=== PATIENT | female | born 1955 | race Caucasian/White ===

== ENCOUNTER → 2016-06-10 | Outpatient (CLI) | payer MEDICARE, MEDICAID ==
[~2016-06-10] MED LIST: ANTIVERT25 MG PO; ATIVAN0.5 MG PO; ATIVAN1 MG PO; AUGMENTIN 875875 MG PO; CIPRO500 MG PO; CYCLOBENZAPRINE5 M3 PO; FLAGYL500 MG PO; HYDROCODONE BIT1 T11 PO; KEFLEX500 MG PO; LIPITOR80 MG PO; MOTRIN600 MG PO; NEXIUM40 MG PO; ROBAXIN-750750 MG PO; SYNTHROID,LEV112 MCG PO; TRICOR48 MG PO; VICODIN 5/500 505 MG PO; ZOFRAN4 MG PO
== END | disposition home or self-care (01) ==
LOC: MAMMO 02:55
DX: Z12.31 Encounter for screening mammogram for malignant neoplasm of breast (principal)

== ENCOUNTER → 2016-11-30 | Outpatient (CLI) | payer MEDICARE, MEDICAID ==
[~2016-11-30] MED LIST changes: -ATIVAN1 MG PO; -SYNTHROID,LEV112 MCG PO; +SYNTHROID,LEV125 MCG PO; +WELCHOL625 MG PO
== END | disposition home or self-care (01) ==
LOC: CARD 11-29 08:54
DX: R53.81 Other malaise (principal); R07.2 Precordial pain

== ENCOUNTER → 2017-02-16 | Outpatient (CLI) | payer MEDICARE, MEDICAID | END | disposition home or self-care (01) | LOC: US 09:48 | DX: N28.1 Cyst of kidney, acquired (principal); R31.1 Benign essential microscopic hematuria ==

== ENCOUNTER → 2017-07-27 | Outpatient (CLI) | payer MEDICARE, MEDICAID | END | disposition home or self-care (01) | LOC: MAMMO 01:03 | DX: Z12.31 Encounter for screening mammogram for malignant neoplasm of breast (principal) ==

== ENCOUNTER → 2019-11-26 | Outpatient (CLI) | payer OTHER | END | disposition home or self-care (01) | LOC: MAMMO 12:58 | DX: Z12.31 Encounter for screening mammogram for malignant neoplasm of breast (principal) ==

== ENCOUNTER 2020-01-25 22:28 | Emergency (ER) | payer OTHER ==
[2020-01-26] MEDS ORDERED: PREDNISONE10 MG PO (00:48)
[2020-01-26] MEDS ORDERED: [UNRECOGNIZED DRUG - REMARK] PO (00:53)
== END 2020-01-26 00:55 | disposition home or self-care (01) ==
LOC: ED 22:28
DX: T78.3XXA Angioneurotic edema, initial encounter (principal); F41.9 Anxiety disorder, unspecified; F32.9 Major depressive disorder, single episode, unspecified; K21.9 Gastro-esophageal reflux disease without esophagitis; J44.9 Chronic obstructive pulmonary disease, unspecified; E03.9 Hypothyroidism, unspecified; Z88.8 Allergy status to other drugs, medicaments and biological substances; Z79.899 Other long term (current) drug therapy

== ENCOUNTER 2020-01-27 10:21 | Emergency (ER) | payer OTHER ==
[~2020-01-27] VITALS: Ht 167.6 cm; Wt 90.7 kg
[~2020-01-27 10:21] MED LIST changes: +PREDNISONE10 MG PO; +[UNRECOGNIZED DRUG - REMARK] PO
[2020-01-27 12:10] LABS: BASO % 0.2 % (0.0-1.0); EOS % 0.1 % (1.0-4.0); HEMATOCRIT 43.4 % (37.0-47.0); LYMPH # 1.6 10*3/uL (1.3-4.4); LYMPH % 8.8 % (27.0-41.0); MEAN CELL VOLUME 83.6 fl (81.0-99.0); MEAN CORPUSCULAR HGB 25.6 pg (27.0-31.0); MEAN CORPUSCULAR HGB CONC 30.6 g/dl (33.0-37.0); MEAN PLATELET VOLUME 10.3 fl (9.6-12.3); MONO # 1.3 10*3/uL (0.1-1.0); MONO % 7.1 % (3.0-9.0); NEUT # 15.3 10*3/uL (2.3-7.9); NEUT % 82.9 % (47.0-73.0); PLATELET COUNT AUTOMATED 214 10*3/uL (130-400); RED BLOOD COUNT 5.19 10*6/uL (4.10-5.10); RED CELL DISTRI WIDTH 13.9 % (0-14.5); WHITE BLOOD COUNT 18.5 10*3/uL (4.8-10.8)
[2020-01-27 12:26] LABS: ALBUMIN 3.7 gm/dl (3.1-4.5); ALKALINE PHOSPHATASE 81 U/L (45-117); BUN 21 mg/dl (7-24); CHLORIDE 103 mmol/L (98-107); CREATININE 1.04 mg/dL (0.55-1.02); LIPASE 41 U/L (73-393); POTASSIUM 3.6 mmol/L (3.5-5.1); SGOT/AST 7 IU/L (3-35); SGPT/ALT 16 U/L (12-78); SODIUM 139 mmol/L (136-145); TOTAL PROTEIN 8.2 gm/dL (6.4-8.2)
[2020-01-27 12:33] LABS: BILIRUBIN 1+; BLOOD 2+ (NEGATIVE); CLARITY TURBID (CLEAR); COLOR ORANGE (YELLOW); GLUCOSE NEGATIVE; KETONE NEGATIVE; LEUKO ESTERASE 2+ (NEGATIVE); NITRITE POSITIVE (NEGATIVE)
[2020-01-27 12:41] LABS: EPITHELIAL CELLS 21-30; RBC TNTC rbc/hpf (0-2); WBC 21-30 wbc/hpf (0-5)
[2020-01-27 12:42] LABS: BACTERIA 1+
== END 2020-01-27 14:49 | disposition short-term general hospital (02) ==
LOC: ED 10:21
PROVIDERS: Physician Assistant
DX: N12 Tubulo-interstitial nephritis, not specified as acute or chronic (principal); A41.9 Sepsis, unspecified organism; F41.9 Anxiety disorder, unspecified; J44.9 Chronic obstructive pulmonary disease, unspecified; F32.9 Major depressive disorder, single episode, unspecified; K21.9 Gastro-esophageal reflux disease without esophagitis; E78.00 Pure hypercholesterolemia, unspecified; E03.9 Hypothyroidism, unspecified; Z88.8 Allergy status to other drugs, medicaments and biological substances; Z79.899 Other long term (current) drug therapy; Z87.891 Personal history of nicotine dependence

== ENCOUNTER 2020-02-16 | Emergency (ER) | payer OTHER ==
[~2020-02-16] VITALS: Ht 167.6 cm; Wt 95.3 kg
[2020-02-16 00:59] LABS: BILIRUBIN 1+; CLARITY Turbid (CLEAR); COLOR Red (YELLOW); GLUCOSE Negative; KETONE Negative
[2020-02-16 01:00] LABS: BLOOD 3+ (NEGATIVE); LEUKO ESTERASE 2+ (NEGATIVE); NITRITE Negative (NEGATIVE); RBC TNTC rbc/hpf (0-2); SPECIFIC GRAVITY 1.015 (1.001-1.030); UROBILINOGEN 0.2 E.U./dl (0.0-1.0)
[2020-02-16 01:00] LABS: BASO % 0.2 % (0.0-1.0); EOS # 0.1 10*3/uL (0.0-0.4); HEMATOCRIT 38.8 % (37.0-47.0); LYMPH % 7.4 % (27.0-41.0); MEAN CELL VOLUME 81.9 fl (81.0-99.0); MEAN CORPUSCULAR HGB 25.5 pg (27.0-31.0); MEAN CORPUSCULAR HGB CONC 31.2 g/dl (33.0-37.0); MEAN PLATELET VOLUME 9.6 fl (9.6-12.3); MONO # 0.9 10*3/uL (0.1-1.0); MONO % 6.7 % (3.0-9.0); NEUT # 10.9 10*3/uL (2.3-7.9); NEUT % 84.4 % (47.0-73.0); PLATELET COUNT AUTOMATED 231 10*3/uL (130-400); RED BLOOD COUNT 4.74 10*6/uL (4.10-5.10); RED CELL DISTRI WIDTH 13.8 % (0-14.5); WHITE BLOOD COUNT 12.9 10*3/uL (4.8-10.8)
[2020-02-16 01:17] LABS: ALBUMIN 3.3 gm/dl (3.1-4.5); CREATININE 1.11 mg/dL (0.55-1.02); POTASSIUM 3.8 mmol/L (3.5-5.1); TOTAL PROTEIN 7.3 gm/dL (6.4-8.2)
[2020-02-16] MEDS ORDERED: NORCO 5-325 TA1 EACH PO (02:41)
== END 2020-02-16 02:40 | disposition home or self-care (01) ==
LOC: ED
PROVIDERS: Nurse Practitioner Family
DX: G89.18 Other acute postprocedural pain (principal); Z88.8 Allergy status to other drugs, medicaments and biological substances; Z79.899 Other long term (current) drug therapy

== ENCOUNTER → 2020-02-28 | Outpatient (CLI) | payer OTHER ==
[~2020-02-28] MED LIST changes: +NORCO 5-325 TA1 EACH PO
== END | disposition home or self-care (01) ==
LOC: CT 12:23
PROVIDERS: ATTEND Urology
DX: R91.8 Other nonspecific abnormal finding of lung field (principal)

== ENCOUNTER 2020-04-03 00:45 | Emergency (ER) | payer OTHER, MEDICAID ==
[~2020-04-03] VITALS: Ht 167.6 cm; Wt 93.0 kg
[2020-04-03 01:18] LABS: BASO # 0.1 10*3/uL (0.0-0.1); BASO % 0.7 % (0.0-1.0); EOS # 0.1 10*3/uL (0.0-0.4); EOS % 1.5 % (1.0-4.0); HEMATOCRIT 41.4 % (37.0-47.0); LYMPH # 1.4 10*3/uL (1.3-4.4); MEAN CELL VOLUME 79.6 fl (81.0-99.0); MEAN CORPUSCULAR HGB 23.7 pg (27.0-31.0); MEAN CORPUSCULAR HGB CONC 29.7 g/dl (33.0-37.0); MEAN PLATELET VOLUME 10.3 fl (9.6-12.3); MONO % 14.7 % (3.0-9.0); NEUT # 4.2 10*3/uL (2.3-7.9); PLATELET COUNT AUTOMATED 222 10*3/uL (130-400); RED CELL DISTRI WIDTH 13.9 % (0-14.5); WHITE BLOOD COUNT 6.8 10*3/uL (4.8-10.8)
[2020-04-03 01:31] LABS: BUN 13 mg/dl (7-24); CHLORIDE 107 mmol/L (98-107); CREATININE 0.95 mg/dL (0.55-1.02); SODIUM 141 mmol/L (136-145)
[2020-04-03] MEDS ORDERED: PREDNISONE20 M1 PO ×2 (01:46)
== END 2020-04-03 01:55 | disposition home or self-care (01) ==
LOC: ED 00:45
PROVIDERS: Internal Medicine
DX: J40 Bronchitis, not specified as acute or chronic (principal); Z88.8 Allergy status to other drugs, medicaments and biological substances; Z79.899 Other long term (current) drug therapy

== ENCOUNTER 2020-04-07 14:43 | Inpatient (IN) | payer OTHER, MEDICAID ==
[~2020-04-07] VITALS: Ht 167.6 cm; Wt 94.3 kg
[~2020-04-07 14:43] MED LIST changes: +PREDNISONE20 M1 PO
[2020-04-07 15:12] VITALS: BP 138/60
[2020-04-07 15:40] VITALS: BP 126/69
[2020-04-07 15:41] LABS: HEMATOCRIT 44.3 % (37.0-47.0); MEAN CELL VOLUME 78.4 fl (81.0-99.0); MEAN CORPUSCULAR HGB 23.9 pg (27.0-31.0); MEAN CORPUSCULAR HGB CONC 30.5 g/dl (33.0-37.0); MEAN PLATELET VOLUME 10.6 fl (9.6-12.3); PLATELET COUNT AUTOMATED 219 10*3/uL (130-400); RED BLOOD COUNT 5.65 10*6/uL (4.10-5.10); WHITE BLOOD COUNT 9.1 10*3/uL (4.8-10.8)
[2020-04-07 15:57] LABS: PLATELET SUFFICIENCY NORMAL (NORMAL); TOTAL CELLS COUNTED 100 #CELLS
[2020-04-07 15:59] LABS: ACT PARTIAL THROMBO TIME 26.2 SECONDS (20.0-32.1); INTERNATIONAL NORM RATIO 0.9 (2.0-3.5)
[2020-04-07 16:01] LABS: ALBUMIN 3.2 gm/dl (3.1-4.5); ALKALINE PHOSPHATASE 79 U/L (45-117); BUN 25 mg/dl (7-24); CHLORIDE 98 mmol/L (98-107); CREATININE 1.27 mg/dL (0.55-1.02); LIPASE 88 U/L (73-393); POTASSIUM 4.2 mmol/L (3.5-5.1); SGOT/AST 13 IU/L (3-35); SGPT/ALT 15 U/L (12-78); SODIUM 133 mmol/L (136-145); TOTAL PROTEIN 7.3 gm/dL (6.4-8.2)
[2020-04-07 16:02] LABS: TROPONIN I < 0.015 ng/ml (<0.045)
[2020-04-07 16:38] VITALS: BP 134/63
--- NOTE | 2020-04-07 17:10 | NUR ---
PROVIDED PT WITH A BEDPAN.
[2020-04-07 17:39] VITALS: BP 129/59
--- NOTE | 2020-04-07 17:39 | NUR ---
PROVIDED PT WITH A GLASS OF WATER.
[2020-04-07 19:47] VITALS: BP 129/71
[2020-04-07 21:05] VITALS: BP 154/70
--- NOTE | 2020-04-07 21:05 | NUR ---
A 64, admitted to , under the services of CHERELLE Vee DO with a diagnosis of PNEUMONIA DUE TO COVID-19 VIRUS. Chief complaint is SOB. Patient arrived via wheel chair from ER. Monitor applied. Initial assessment completed. Vital signs taken and recorded. CHERELLE VEE DO notified of admission to the unit. Orders received. See assessment for past medical history, medications and allergies. Patient and/or family oriented to unit. [facility] visitation policy reviewed. Clothing/patient valuable form completed. THOM CLAY
--- NOTE | 2020-04-07 21:10 | NUR ---
PATIENT PULSE OX 88% ON 4L. 6L HIGHFLOW NASAL CANNULA PLACED ON PATIENT. PATIENT PLACED ON CONTINOUS PULSE OX. WILL CONTINUE TO MONITOR.
--- NOTE | 2020-04-07 21:12 | NUR ---
PROVIDED PATIENT WITH A DRINK OF WATER.
[2020-04-07] MEDS ORDERED: OXYBUTYNIN10 MG PO (21:48)
[2020-04-07] MEDS ORDERED: TAMSULOSIN HCL0.4 MG PO (21:48)
[2020-04-07 21:55] LABS: ABG BASE EXCESS 2.2 mmol/L (-2.0-2.0); ARTERIAL BLOOD GAS PH 7.482 (7.35-7.45)
--- NOTE | 2020-04-07 22:10 | NUR ---
NOTIFIED DR. BAE OF NEW CONSULT AND UPDATED HIM ON PATIENT LABWORK AND CONDITION. SEE NEW ORDERS.
--- NOTE | 2020-04-07 23:00 | NUR ---
NOTIFIED DR. NAJERA OF CRITICAL LACTIC ACID, 4.1. NO NEW ORDERS RECEIVED. WILL CONTINUE TO MONITOR.
--- NOTE | 2020-04-07 23:33 | NUR ---
NOTIFIED DR. WHITMORE ANSWERING SERVICE OF NEW CONSULT
[2020-04-08] VITALS: BP 115/76
[2020-04-08 05:34] LABS: BILIRUBIN Negative (Negative); BLOOD Trace-Lysed (Negative); CLARITY Clear (Clear); COLOR Yellow (Yellow); GLUCOSE Negative (Negative); KETONE Negative (Negative); LEUKO ESTERASE Negative (Negative); NITRITE Negative (Negative); PH 5.5 (4.5-8.0); SPECIFIC GRAVITY 1.015 (1.001-1.030); UROBILINOGEN 0.2 E.U./dl (0.0-1.0)
[2020-04-08 05:47] LABS: RBC 16-20 rbc/hpf (0-2)
[2020-04-08 06:28] LABS: BASO % 0.1 % (0.0-1.0); HEMATOCRIT 39.6 % (37.0-47.0); LYMPH # 0.5 10*3/uL (1.3-4.4); LYMPH % 6.5 % (27.0-41.0); MEAN CELL VOLUME 79.2 fl (81.0-99.0); MEAN CORPUSCULAR HGB 24.4 pg (27.0-31.0); MEAN CORPUSCULAR HGB CONC 30.8 g/dl (33.0-37.0); MEAN PLATELET VOLUME 10.4 fl (9.6-12.3); MONO # 0.4 10*3/uL (0.1-1.0); NEUT # 6.6 10*3/uL (2.3-7.9); NEUT % 88.1 % (47.0-73.0); PLATELET COUNT AUTOMATED 187 10*3/uL (130-400); RED CELL DISTRI WIDTH 14.2 % (0-14.5); WHITE BLOOD COUNT 7.4 10*3/uL (4.8-10.8)
[2020-04-08 06:56] LABS: ALBUMIN 2.9 gm/dl (3.1-4.5); BUN 20 mg/dl (7-24); CHLORIDE 101 mmol/L (98-107); POTASSIUM 4.1 mmol/L (3.5-5.1); SGOT/AST 11 IU/L (3-35); SGPT/ALT 13 U/L (12-78); SODIUM 135 mmol/L (136-145); TOTAL PROTEIN 6.7 gm/dL (6.4-8.2)
[2020-04-08 06:59] LABS: ALKALINE PHOSPHATASE 65 U/L (45-117); CPK 35 U/L (26-192); LDH 191 U/L (84-246)
[2020-04-08 08:00] VITALS: BP 138/51
--- NOTE | 2020-04-08 08:30 | NUR ---
PT AWAKE/ALERT/ORIENTED X3. LUNGS DIMINISHED T/O. ON 6.L HIGH FLOW AT THIS TIME. PATIENT UP WALKING IN ROOM. NO EDEMA NOTED. NONPRODUCTIVE HACKING COUGH NOTED ON ASSESSMENT. PATIENT DENIES ANY NEEDS AT THIS TIME. CALL LIGHT WITHIN REACH.
--- NOTE | 2020-04-08 09:00 | NUR ---
case management attempted to talk with patient, she was on bipap at this time, will call at another time
--- NOTE | 2020-04-08 11:10 | NUR ---
PT PLACED ON BIPAP AT THIS TIME PER DR BAE'S ORDER. SYSTEM CHECKED AND FX'ING. PT RESTING COMFORTABLY. RESPS REGULAR AND UNLABORED. ABG'S TO FOLLOW IN 2 HRS.
[2020-04-08 12:00] VITALS: BP 138/59
--- NOTE | 2020-04-08 13:20 | NUR ---
ABG DRAWN ON BIPAP. POST ABG PT PLACED ON 6 L HFNC. SPO2 WAS ONLY 95%. O2 TITTRATED TO 10 L HFNC TO OBTAIN SPO2 OF 90-92%. EXPLAINED TO PT THE NEED TO SLEF PRONE AND KEEP O2 ON. RN AWARE.
[2020-04-08 13:44] LABS: ABG BASE EXCESS 0.7 mmol/L (-2.0-2.0); ARTERIAL BLOOD GAS PH 7.441 (7.35-7.45)
[2020-04-08 15:43] VITALS: BP 133/59
[2020-04-08 18:07] LABS: ABG BASE EXCESS 1.8 mmol/L (-2.0-2.0); ARTERIAL BLOOD GAS PH 7.448 (7.35-7.45)
--- NOTE | 2020-04-08 19:30 | NUR ---
patient self proning.
[2020-04-08 20:00] VITALS: BP 143/55
--- NOTE | 2020-04-08 21:00 | NUR ---
KATHIA GARRETT CALLED IN. STATED TO ORDER STAT CTA OF CHEST. ORDERS PLACED
--- NOTE | 2020-04-08 21:25 | NUR ---
PATIENT SITTING IN BED. PULSE OX ONLY 86%. PATIENTS PLACED ON 15L HIGH FLOW NC. PATIENT NOW SELF PRONING. PULSE OX NOW 95%. WILL CONTINUE TO MONITOR.
--- NOTE | 2020-04-08 21:50 | NUR ---
PORTABLE CHEST XRAY IN ROOM.
--- NOTE | 2020-04-08 22:15 | NUR ---
SPOKE WITH DR. BAE REGARDING PATIENTS CONDITION. PATIENT NOW ON 15L HIGH FLOW. STATED TO HOLD OFF ON CTA UNTIL MORNING. PLACE PATIENT ON BIPAP NOW AND ORDER LOVENOX 1MG/KG BID AND TRANSFER PATIENT TO THE ICU. SUPERVISOR [employer] MADE AWARE. WILL CONTINUE TO MONITOR.
[2020-04-09] VITALS (7 sets, daily range): BP systolic 128–145; BP diastolic 48–78
--- NOTE | 2020-04-09 02:00 | NUR ---
PT RESTING QUIETLY. NO DISTRESS NOTED. POX 94%. REMAINS ON BIPAP ORDERED. ENCOURAGED TO SELF PRONE. RAFAEL CONRAD RN
--- NOTE | 2020-04-09 05:34 | NUR ---
UP TO BSC WITH HELP. NO DISTRESS NOTED. PULSE OX REMAINS 92-94% ON BIPAP ORDERED. CONTINUES TO SELF PRONE ENCOURAGED. TOLERATING WELL. RAFAEL CONRAD RN
[2020-04-09 07:04] LABS: BASO % 0.1 % (0.0-1.0); HEMATOCRIT 39.6 % (37.0-47.0); LYMPH % 10.6 % (27.0-41.0); MEAN CELL VOLUME 79.2 fl (81.0-99.0); MEAN CORPUSCULAR HGB 24.2 pg (27.0-31.0); MEAN CORPUSCULAR HGB CONC 30.6 g/dl (33.0-37.0); MONO # 0.7 10*3/uL (0.1-1.0); MONO % 7.1 % (3.0-9.0); NEUT # 7.7 10*3/uL (2.3-7.9); NEUT % 81.8 % (47.0-73.0); PLATELET COUNT AUTOMATED 209 10*3/uL (130-400); RED CELL DISTRI WIDTH 14.1 % (0-14.5); WHITE BLOOD COUNT 9.4 10*3/uL (4.8-10.8)
[2020-04-09 07:17] LABS: ALBUMIN 2.9 gm/dl (3.1-4.5); ALKALINE PHOSPHATASE 63 U/L (45-117); BUN 20 mg/dl (7-24); CHLORIDE 103 mmol/L (98-107); CREATININE 0.83 mg/dL (0.55-1.02); LDH 278 U/L (84-246); POTASSIUM 3.5 mmol/L (3.5-5.1); SGOT/AST 13 IU/L (3-35); SGPT/ALT 12 U/L (12-78); SODIUM 138 mmol/L (136-145); TOTAL PROTEIN 6.7 gm/dL (6.4-8.2)
[2020-04-09 07:30] LABS: CPK 56 U/L (26-192)
[2020-04-09 08:49] LABS: ABG BASE EXCESS 4.1 mmol/L (-2.0-2.0); ARTERIAL BLOOD GAS PH 7.472 (7.35-7.45)
--- NOTE | 2020-04-09 10:54 | NUR ---
BIPAP SETTINGS INCREASED TO 16-12. PT. TOLERATED WELL.
--- NOTE | 2020-04-09 12:06 | NUR ---
PATIENT HAS GONE TO CT AND IS BACK ON BIPAP.
[2020-04-09 13:56] LABS: ARTERIAL BLOOD GAS PH 7.468 (7.35-7.45)
--- NOTE | 2020-04-09 14:56 | NUR ---
case yahaira attempted to talk with patient, she was unable to talk with case management at this time due to shortness of breath, will talk with patient in the am
--- NOTE | 2020-04-09 16:00 | NUR ---
SPOKE TO SON CHIO AND TO PATIENT ABOUT POSSIBILITY OF NEEDING VENTILATOR. PATIENT AND SON IN AGREEMENT IF THAT SHOULD HAPPEN. WILL CALL SON WITH UPDATE.
[2020-04-09 18:00] LABS: ABG BASE EXCESS 2.4 mmol/L (-2.0-2.0); ARTERIAL BLOOD GAS PH 7.46 (7.35-7.45)
--- NOTE | 2020-04-09 19:13 | NUR ---
Shift chart check completed.24 HR chart check completed.
--- NOTE | 2020-04-09 20:45 | NUR ---
AT 1930 PAULO GAN PLACED RT RADIAL ARTERIAL LINE. MONITOR ZEROED AND LEVELED. ON ASSESSMENT PATIENT IS ALERT, ORIENTED. AFTER THE PROCEDURE SHE WAS ASSISTED TO LEFT SIDED SEMIPRONE POSITION. BED IS IN LOW POSITION WITH WHEELS LOCKED. PT IS VISIBLE VIA CAMERA. BIPAP INTACT. SEE ALL APPROPRIATE INTERVENTIONS.
[2020-04-09 20:51] LABS: ABG BASE EXCESS 2.4 mmol/L (-2.0-2.0); ARTERIAL BLOOD GAS PH 7.446 (7.35-7.45)
--- NOTE | 2020-04-09 22:13 | NUR ---
PT INSTRUCTED THAT ABG'S SHOW CURRENT BIPAP SETTINGS ARE HELPING AND THAT DR BAE WANTS HER TO WEAR THE BIPAP MUCH POSSIBLE. SHE WAS ASSISTED UP TO BSC TO VOID. BIPAP REMOVED FOR A DRINK OF WATER. PT MENTIONS "SOME NAUSEA". MEDICATED FOR THIS WITH ZOFRAN. ASSISTED TO A POSITION OF COMFORT.
--- NOTE | 2020-04-09 23:04 | NUR ---
RESTING WITH EYES CLOSED AND NO FURTHER VOICED COMPLAINTS OF NAUSEA/EMESIS SINCE EARLIER ZOFRAN.
[2020-04-10] VITALS: BP 128/50
--- NOTE | 2020-04-10 01:04 | NUR ---
PATIENT HAS BEEN SLEEPING IN SEMI-PRONE POSITIONS. BIPAP INTACT. CONTINUALLY VISIBLE VIA CAMERA.
--- NOTE | 2020-04-10 01:45 | NUR ---
PT AWAKE. BIPAP REMOVED FOR DRINK OF WATER. PT OFFERED ASSIST TO BSC, BUT SHE DECLINED. ART LINE INTACT WITH GOOD WAVEFORM AND DYNAMIC RESPONSE. NO DYSRHYTHMIAS. PULSE OX HAS BEEN > 94%.
[2020-04-10 04:00] VITALS: BP 142/76
--- NOTE | 2020-04-10 04:12 | NUR ---
PT HAD BEEN AWAKE, DIDN'T APPEAR COMFORTABLE IN BED. ASSISTED OUT OF BED TO CHAIR. PLACED ON HIGH FLOW AT 15L FOR A DRINK OF WATER. PT ABLE TO CONVERSE FREELY. PULSE OX DOWN TO LOW 84% AFTER THE ACTIVITY AND ON HIGH FLOW NASAL CANNULA. BIPAP REAPPLIED AND PULSE OX HAS SLOWLY RECOVERED TO 95%. PT ENCOURAGED TO SIT ONLY FOR A WHILE THEN TO ATTEMPT TO PRONE AGAIN PRIOR TO ABG'S. PT EXPRESSES COMFORT BEING OUT OF BED, BUT UNDERSTANDS ABOUT GETTNG BACK TO BED IN A WHILE.
[2020-04-10 05:57] LABS: ALBUMIN 2.8 gm/dl (3.1-4.5); ALKALINE PHOSPHATASE 65 U/L (45-117); BUN 19 mg/dl (7-24); CHLORIDE 104 mmol/L (98-107); CREATININE 0.76 mg/dL (0.55-1.02); LDH 348 U/L (84-246); POTASSIUM 3.8 mmol/L (3.5-5.1); SGOT/AST 16 IU/L (3-35); SGPT/ALT 11 U/L (12-78); SODIUM 139 mmol/L (136-145)
[2020-04-10 05:58] LABS: CPK 37 U/L (26-192)
--- NOTE | 2020-04-10 06:04 | NUR ---
ASSISTED INTO BED TO LEFT SIDED SEMI-PRONING POSITION. ART LINE DRESSING BLOODY. DRESSING CHANGED WITH CONNECTIONS TIGHTENED.
[2020-04-10 06:18] LABS: HEMATOCRIT 40.2 % (37.0-47.0); LYMPH % 13.3 % (27.0-41.0); MEAN CELL VOLUME 79.1 fl (81.0-99.0); MEAN CORPUSCULAR HGB CONC 30.3 g/dl (33.0-37.0); MEAN PLATELET VOLUME 10.1 fl (9.6-12.3); MONO # 0.7 10*3/uL (0.1-1.0); MONO % 9.4 % (3.0-9.0); NEUT % 76.9 % (47.0-73.0); PLATELET COUNT AUTOMATED 199 10*3/uL (130-400); RED BLOOD COUNT 5.08 10*6/uL (4.10-5.10); RED CELL DISTRI WIDTH 13.9 % (0-14.5); WHITE BLOOD COUNT 7.8 10*3/uL (4.8-10.8)
[2020-04-10 08:00] VITALS: BP 158/64
--- NOTE | 2020-04-10 08:00 | NUR ---
PT RESTING QUIETLY. NO COMPLAINTS OFFERED.VSS. REMAINS ON BIPAP ORDERED. PULSE OX 93-94% AT REST. WITH ACTIVITY DESATS TO MID 80'S. ENCOURAGED TO CONTINUE TO SELF PRONE. RAFAEL CONRAD RN
--- NOTE | 2020-04-10 08:20 | NUR ---
PATIENT TAKEN OFF OF BI-PAP, PLACED ON 15 L/M HIGH FLOW.
[2020-04-10 08:25] LABS: ABG BASE EXCESS 3.2 mmol/L (-2.0-2.0); ARTERIAL BLOOD GAS PH 7.447 (7.35-7.45)
--- NOTE | 2020-04-10 09:00 | NUR ---
case management attempted to talk with patient regarding a discharge plan, patient was unable to talk at this time. she continues on bipap and 6l of oxygen when not on bipap, case management will follow
--- NOTE | 2020-04-10 09:25 | NUR ---
PATIENT PLACED ON 75% OPTI-FLOW, PULSE OX 90%.
--- NOTE | 2020-04-10 09:30 | NUR ---
PT SITTING UP IN CHAIR TO EAT BREAKFAST. PLACED ON HIGH FLOW O2 AT 15L. PULSE OX 87-89%. TALKING WITHOUT DIFFCULTY RAFAEL CONRADRN
--- NOTE | 2020-04-10 10:15 | NUR ---
DR BAE HERE EXAMINED PATIENT. ORDERS REC'D. PT PLACED BACK IN BED AND ON BIPAP / AT 65% O2. RAFAEL CONRAD RN
[2020-04-10 12:00] VITALS: BP 149/65
[2020-04-10 14:44] LABS: ABG BASE EXCESS 2.1 mmol/L (-2.0-2.0); ARTERIAL BLOOD GAS PH 7.465 (7.35-7.45)
--- NOTE | 2020-04-10 15:00 | NUR ---
DR BAE CALLED WITH ABG RESULTS, ORDERS REC'D
[2020-04-10 16:00] VITALS: BP 132/56; BP 144/59
[2020-04-10 17:50] LABS: ABG BASE EXCESS 2.7 mmol/L (-2.0-2.0); ARTERIAL BLOOD GAS PH 7.464 (7.35-7.45)
--- NOTE | 2020-04-10 18:03 | NUR ---
DR BAE CALLED WITH ABG RESULTS. NO NEW ORDERS REC'D. CALLED AND TALKED TO PATIENTS SON WITH UPDATE. RAFAEL CONRAD RN
--- NOTE | 2020-04-10 18:59 | NUR ---
MOVED BACK TO ICU 3. SON NOTIFIED. RAFAEL CONRAD RN
[2020-04-10 20:00] VITALS: BP 138/50
[2020-04-11] VITALS: BP 131/52
--- NOTE | 2020-04-11 01:31 | NUR ---
Patient has been wearing bipap all night with no issues. Did request a sleeping pill. Restoril given. Will monitor and reassess.
[2020-04-11 04:00] VITALS: BP 120/44
[2020-04-11 05:51] LABS: ALBUMIN 3.2 gm/dl (3.1-4.5); BUN 23 mg/dl (7-24); CHLORIDE 104 mmol/L (98-107); CREATININE 0.78 mg/dL (0.55-1.02); LDH 346 U/L (84-246); POTASSIUM 3.9 mmol/L (3.5-5.1); SGOT/AST 12 IU/L (3-35); SGPT/ALT 13 U/L (12-78); SODIUM 140 mmol/L (136-145)
[2020-04-11 05:52] LABS: ALKALINE PHOSPHATASE 61 U/L (45-117); CPK 30 U/L (26-192)
[2020-04-11 06:14] LABS: HEMATOCRIT 37.9 % (37.0-47.0); LYMPH # 0.9 10*3/uL (1.3-4.4); LYMPH % 13.5 % (27.0-41.0); MEAN CELL VOLUME 77.7 fl (81.0-99.0); MEAN CORPUSCULAR HGB 23.6 pg (27.0-31.0); MEAN CORPUSCULAR HGB CONC 30.3 g/dl (33.0-37.0); MEAN PLATELET VOLUME 11.5 fl (9.6-12.3); MONO # 0.7 10*3/uL (0.1-1.0); MONO % 10.8 % (3.0-9.0); NEUT # 4.9 10*3/uL (2.3-7.9); NEUT % 75.2 % (47.0-73.0); PLATELET COUNT AUTOMATED 183 10*3/uL (130-400); RED BLOOD COUNT 4.88 10*6/uL (4.10-5.10); WHITE BLOOD COUNT 6.6 10*3/uL (4.8-10.8)
[2020-04-11 07:37] LABS: ABG BASE EXCESS 3.7 mmol/L (-2.0-2.0); ARTERIAL BLOOD GAS PH 7.464 (7.35-7.45)
[2020-04-11 08:00] VITALS: BP 142/62
--- NOTE | 2020-04-11 08:07 | NUR ---
PT ON BIPAP AT THIS TIME
--- NOTE | 2020-04-11 11:00 | NUR ---
KATHIA GARRETT IN TO SEE PATIENT. PATIENT CONDITION REVIEWED. ORDERS RECEIVED.
[2020-04-11 12:00] VITALS: BP 136/57
[2020-04-11 16:00] VITALS: BP 130/55
--- NOTE | 2020-04-11 16:39 | NUR ---
SPOKE WITH SON REGARDING UPDATED PLAN OF CARE.
--- NOTE | 2020-04-11 18:36 | NUR ---
PT PLACED BACK ON BIPAP AT THIS TIME.
--- NOTE | 2020-04-11 19:18 | NUR ---
CHART CHECK COMPLETE. PT RESTING IN BED. TOLERATING BIPAP WITH PULSE OX MID TO UPPER 90'S. HR UPPER 50'S-LOW 60'S AND RR 20/MIN.
[2020-04-11 20:00] VITALS: BP 149/61
--- NOTE | 2020-04-11 20:40 | NUR ---
MED CALL CALLS IN. STILL NO BEDS AVAILABLE AT THIS TIME BUT MAY BE IN THE AM....POSSIBLY WILL BE ABLE TO TRY [facility] IN AM.
--- NOTE | 2020-04-11 21:25 | NUR ---
BEDGLUCOSE DONE. PM MEDICATIONS GIVEN, INCLUDING REQUESTED RESTORIL, AND ASSISTED UP TO BSC AND BACK TO BED. PT TURNING SELF TO SIDE AND PRONES MUCH SHE CAN WITH BIPAP MASK.
--- NOTE | 2020-04-11 22:34 | NUR ---
RESTORIL EFFECTIVE...PT DOZING. LAYING ON HER SIDE. BIPAP ON. HR 50'S PULSE OX 95-97%.
[2020-04-12] VITALS (16 sets, daily range): BP systolic 121–159; BP diastolic 42–88
--- NOTE | 2020-04-12 02:32 | NUR ---
PT LAYING ON HER LT SIDE...SLEEPING. BIPAP IN USE. HR MID TO UPPER 40'S, RR 18/MIN AND PULSE OX 92-93%. NO ACUTE DISTRESS NOTED.
[2020-04-12 05:42] LABS: ALKALINE PHOSPHATASE 61 U/L (45-117); BUN 27 mg/dl (7-24); CHLORIDE 108 mmol/L (98-107); CPK 21 U/L (26-192); CREATININE 0.74 mg/dL (0.55-1.02); LDH 321 U/L (84-246); POTASSIUM 3.9 mmol/L (3.5-5.1); SGOT/AST 11 IU/L (3-35); SGPT/ALT 11 U/L (12-78); SODIUM 141 mmol/L (136-145); TOTAL PROTEIN 6.6 gm/dL (6.4-8.2)
[2020-04-12 06:35] LABS: BASO % 0.1 % (0.0-1.0); EOS % 0.1 % (1.0-4.0); HEMATOCRIT 38.5 % (37.0-47.0); LYMPH # 1.4 10*3/uL (1.3-4.4); LYMPH % 14.1 % (27.0-41.0); MEAN CELL VOLUME 79.1 fl (81.0-99.0); MEAN CORPUSCULAR HGB 24.2 pg (27.0-31.0); MEAN CORPUSCULAR HGB CONC 30.6 g/dl (33.0-37.0); MONO # 0.7 10*3/uL (0.1-1.0); MONO % 7.3 % (3.0-9.0); NEUT # 7.6 10*3/uL (2.3-7.9); NEUT % 77.7 % (47.0-73.0); PLATELET COUNT AUTOMATED 220 10*3/uL (130-400); RED BLOOD COUNT 4.87 10*6/uL (4.10-5.10); WHITE BLOOD COUNT 9.8 10*3/uL (4.8-10.8)
[2020-04-12 07:22] LABS: ABG BASE EXCESS 2.4 mmol/L (-2.0-2.0); ARTERIAL BLOOD GAS PH 7.456 (7.35-7.45)
[2020-04-12 12:58] LABS: ARTERIAL BLOOD GAS PH 7.481 (7.35-7.45)
--- NOTE | 2020-04-12 19:38 | NUR ---
1919 Report receivd from Dari NOVAK. Pt is AAOX3. Pt currently eating and on Hi-flow at 100% sating 88%. Right arm arterial line dressing clean, dry and intact. No distress noted, safety measures in place, call light within reach will continue to monitor.
[2020-04-13] VITALS (15 sets, daily range): BP systolic 74–168; BP diastolic 52–81
[2020-04-13 06:05] LABS: BASO % 0.1 % (0.0-1.0); EOS % 0.1 % (1.0-4.0); HEMATOCRIT 38.3 % (37.0-47.0); LYMPH # 1.5 10*3/uL (1.3-4.4); LYMPH % 13.2 % (27.0-41.0); MEAN CELL VOLUME 78.3 fl (81.0-99.0); MEAN CORPUSCULAR HGB 23.9 pg (27.0-31.0); MEAN CORPUSCULAR HGB CONC 30.5 g/dl (33.0-37.0); MEAN PLATELET VOLUME 10.2 fl (9.6-12.3); MONO # 0.8 10*3/uL (0.1-1.0); NEUT # 8.9 10*3/uL (2.3-7.9); NEUT % 78.5 % (47.0-73.0); PLATELET COUNT AUTOMATED 255 10*3/uL (130-400); RED BLOOD COUNT 4.89 10*6/uL (4.10-5.10); WHITE BLOOD COUNT 11.3 10*3/uL (4.8-10.8)
[2020-04-13 06:10] LABS: ALKALINE PHOSPHATASE 64 U/L (45-117); BUN 23 mg/dl (7-24); CHLORIDE 109 mmol/L (98-107); CPK 16 U/L (26-192); CREATININE 0.68 mg/dL (0.55-1.02); LDH 293 U/L (84-246); POTASSIUM 3.7 mmol/L (3.5-5.1); SGOT/AST 7 IU/L (3-35); SGPT/ALT 10 U/L (12-78); SODIUM 141 mmol/L (136-145); TOTAL PROTEIN 6.5 gm/dL (6.4-8.2)
[2020-04-13 08:04] LABS: ABG BASE EXCESS 3.5 mmol/L (-2.0-2.0); ARTERIAL BLOOD GAS PH 7.464 (7.35-7.45)
[2020-04-13 17:30] LABS: ABG BASE EXCESS -0.5 mmol/L (-2.0-2.0); ARTERIAL BLOOD GAS PH 7.351 (7.35-7.45)
--- NOTE | 2020-04-13 18:38 | NUR ---
PHARMACY CALLED. RN REQUEST CLARIFICATION OF NIMBEX ORDER.
--- NOTE | 2020-04-13 22:53 | NUR ---
1899 Report received from Dari NOVAK. Pt intubated and sedated, right IJ central line dressing clean, dry and intact. Propofol infusing at 50 mcg/kg/min. No distress noted, will continue to monitor. 2244 updated on pt's status, orders to hold proning and Nimbex infusion for now, will continue to monitor.
[2020-04-14] VITALS (15 sets, daily range): BP systolic 104–153; BP diastolic 46–66
[2020-04-14 05:35] LABS: ALBUMIN 2.8 gm/dl (3.1-4.5); ALKALINE PHOSPHATASE 63 U/L (45-117); BUN 20 mg/dl (7-24); CHLORIDE 106 mmol/L (98-107); CREATININE 0.71 mg/dL (0.55-1.02); LDH 241 U/L (84-246); SGOT/AST 10 IU/L (3-35); SGPT/ALT 11 U/L (12-78); SODIUM 139 mmol/L (136-145)
[2020-04-14 05:46] LABS: CPK 24 U/L (26-192)
[2020-04-14 05:58] LABS: MEAN CELL VOLUME 80.2 fl (81.0-99.0); MEAN CORPUSCULAR HGB 24.1 pg (27.0-31.0); MEAN PLATELET VOLUME 10.9 fl (9.6-12.3); PLATELET COUNT AUTOMATED 292 10*3/uL (130-400); RED BLOOD COUNT 4.74 10*6/uL (4.10-5.10); RED CELL DISTRI WIDTH 14.7 % (0-14.5)
[2020-04-14 06:44] LABS: PLATELET SUFFICIENCY NORMAL (NORMAL); TOTAL CELLS COUNTED 100 #CELLS
[2020-04-14 06:45] LABS: MICROCYTOSIS SLIGHT
[2020-04-14 08:11] LABS: ABG BASE EXCESS 0.7 mmol/L (-2.0-2.0); ARTERIAL BLOOD GAS PH 7.407 (7.35-7.45)
--- NOTE | 2020-04-14 08:36 | NUR ---
Contacted [facility] at [phone] regarding transfer and spoke with Saira. Patient is to be transferred to [facility] [place], accepting physician is Dr. Reeves in [facility]. Can Solderer Susan Arambula is obtaining precert.
--- NOTE | 2020-04-14 08:44 | NUR ---
case management received a message patient needed transferred to [facility] for higher level of care. called insurance company, spoke to Hannah, patient's information given and pending reference number of [id number] received with fax number for receiving facility, . case tila contacted [facility] med call and spoke to Pilar. information given, Pilar stated she would call case management when she has spoken to case technician at [facility]
--- NOTE | 2020-04-14 09:26 | NUR ---
case management contacted [facility] med call regarding patient transferring to [facility]. spoke to Mara outpatient case manager. Jacqueline stated it was ok to transfer patient to [facility] that med call would call nursing unit when there was a bed available is available. case management informed nursing unit
--- NOTE | 2020-04-14 12:47 | NUR ---
PER MD MUIR, NIMBEX DRIP STARTED, SEE MAR FOR DETAILS. PER , PLANNING TO PRONE PATIENT
--- NOTE | 2020-04-14 13:16 | NUR ---
1310 PER GARRET, NIMBEX DRIP INCREASED TO 1 MCG/KG/MIN, SEE MAR.
--- NOTE | 2020-04-14 13:42 | NUR ---
MD MUIR UPDATED TO CRITICAL TROPONIN 0.294 UPON RECIPT OF CALL FROM LAB
[2020-04-14 15:47] LABS: ABG BASE EXCESS -1.7 mmol/L (-2.0-2.0); ARTERIAL BLOOD GAS PH 7.255 (7.35-7.45)
[2020-04-14] MEDS ORDERED: ASPIRIN ADULT L81 M2 PO (16:48)
[2020-04-14] MEDS ORDERED: ATORVASTATIN CA40 M1 PO (16:48)
[2020-04-14] MEDS ORDERED: LOPRESSOR25 MG PO (16:48)
--- NOTE | 2020-04-14 16:52 | NUR ---
REPORT CALLED AND GIVEN TO KARLY PORTER RN AT [facility]. MD MUIR UPDATED TO ETA OF FLIGHT TRANSPORT FOR PATIENT.
--- NOTE | 2020-04-14 17:15 | NUR ---
FLIGHT NURSES/TRANSPORT HERE TO TRANSPORT PATIENT. JERAMIE/HERIBERTO STAFF AT BEDSIDE. PT BEING PREPARED FOR TRANSPORT. REPORT GIVEN TO FLIGHT RN MAIKEL.
--- NOTE | 2020-04-14 17:40 | NUR ---
FLIGHT RN MAIKEL REQUEST 1 LITER BAG OF 0.9%NS. ORDER REQUESTED FROM MD MUIR. PER MD MUIR ORDER TO BE PLACED.
--- NOTE | 2020-04-14 18:05 | NUR ---
PT. DISCHARGED FROM UNIT WITH FLIGHT NURSES MAIKEL AND LIDYA. CARE RELINQUISHED.
== END 2020-04-14 18:05 | disposition short-term general hospital (02) | DRG 871 ==
LOC: ED 14:43 → 4E 18:20 → ICCU 18:20 → EDHOLD 18:20 → 4E 18:48 → ICCU 04-10 18:46
PROVIDERS: Emergency Medicine; Hospitalist; Internal Medicine Critical Care Medicine; ADMIT Internal Medicine; ATTEND Internal Medicine
PROC: 5A09357 Assistance with Respiratory Ventilation, Less than 24 Consecutive Hours, Continuous Positive Airway Pressure (ICD-10-PCS; 2020-04-08)
PROC: 03HY32Z Insertion of Monitoring Device into Upper Artery, Percutaneous Approach (ICD-10-PCS; 2020-04-09)
PROC: XW033E5 Introduction of Remdesivir Anti-infective into Peripheral Vein, Percutaneous Approach, New Technology Group 5 (ICD-10-PCS; 2020-04-09)
PROC: 5A09357 Assistance with Respiratory Ventilation, Less than 24 Consecutive Hours, Continuous Positive Airway Pressure (ICD-10-PCS; 2020-04-09)
PROC: 5A0935A Assistance with Respiratory Ventilation, Less than 24 Consecutive Hours, High Flow/Velocity Cannula (ICD-10-PCS; 2020-04-09)
PROC: 5A09357 Assistance with Respiratory Ventilation, Less than 24 Consecutive Hours, Continuous Positive Airway Pressure (ICD-10-PCS; 2020-04-10)
PROC: 5A0935A Assistance with Respiratory Ventilation, Less than 24 Consecutive Hours, High Flow/Velocity Cannula (ICD-10-PCS; 2020-04-10)
PROC: 5A09457 Assistance with Respiratory Ventilation, 24-96 Consecutive Hours, Continuous Positive Airway Pressure (ICD-10-PCS; 2020-04-11)
PROC: 02HV33Z Insertion of Infusion Device into Superior Vena Cava, Percutaneous Approach (ICD-10-PCS; principal; 2020-04-13)
PROC: B548ZZA Ultrasonography of Superior Vena Cava, Guidance (ICD-10-PCS; 2020-04-13)
PROC: 0BH17EZ Insertion of Endotracheal Airway into Trachea, Via Natural or Artificial Opening (ICD-10-PCS; 2020-04-13)
PROC: 5A1945Z Respiratory Ventilation, 24-96 Consecutive Hours (ICD-10-PCS; 2020-04-13)
PROC: 5A09357 Assistance with Respiratory Ventilation, Less than 24 Consecutive Hours, Continuous Positive Airway Pressure (ICD-10-PCS; 2020-04-13)
PROC: 5A0935A Assistance with Respiratory Ventilation, Less than 24 Consecutive Hours, High Flow/Velocity Cannula (ICD-10-PCS; 2020-04-13)
DX: A41.9 Sepsis, unspecified organism (principal); U07.1 COVID-19; J12.89 Other viral pneumonia; J96.01 Acute respiratory failure with hypoxia; N17.0 Acute kidney failure with tubular necrosis; I21.4 Non-ST elevation (NSTEMI) myocardial infarction; E87.1 Hypo-osmolality and hyponatremia; E44.0 Moderate protein-calorie malnutrition; J44.0 Chronic obstructive pulmonary disease with (acute) lower respiratory infection; D68.69 Other thrombophilia; C64.2 Malignant neoplasm of left kidney, except renal pelvis; B37.0 Candidal stomatitis; Z68.33 Body mass index [BMI] 33.0-33.9, adult; R65.20 Severe sepsis without septic shock; R73.9 Hyperglycemia, unspecified; K21.9 Gastro-esophageal reflux disease without esophagitis; I10 Essential (primary) hypertension; E78.5 Hyperlipidemia, unspecified; E03.9 Hypothyroidism, unspecified; E87.6 Hypokalemia; I25.9 Chronic ischemic heart disease, unspecified; T38.0X5A Adverse effect of glucocorticoids and synthetic analogues, initial encounter; F41.1 Generalized anxiety disorder; F32.9 Major depressive disorder, single episode, unspecified; K57.90 Diverticulosis of intestine, part unspecified, without perforation or abscess without bleeding; E78.00 Pure hypercholesterolemia, unspecified; Y92.89 Other specified places as the place of occurrence of the external cause; Z90.49 Acquired absence of other specified parts of digestive tract; Z83.3 Family history of diabetes mellitus; Z82.49 Family history of ischemic heart disease and other diseases of the circulatory system; Z88.8 Allergy status to other drugs, medicaments and biological substances; Z79.899 Other long term (current) drug therapy; Z98.51 Tubal ligation status; Z90.710 Acquired absence of both cervix and uterus

== ENCOUNTER → 2020-06-24 | Outpatient (CLI) | payer OTHER, MEDICAID ==
[~2020-06-24] MED LIST changes: +ASPIRIN ADULT L81 M2 PO; +ATORVASTATIN CA40 M1 PO; +LOPRESSOR25 MG PO; +OXYBUTYNIN10 MG PO; +TAMSULOSIN HCL0.4 MG PO
== END | disposition home or self-care (01) ==
LOC: CARD 11:00
PROVIDERS: ATTEND Internal Medicine
DX: R00.1 Bradycardia, unspecified (principal)

== ENCOUNTER → 2020-07-21 | Outpatient (CLI) | payer OTHER, MEDICAID ==
[2020-07-21 12:33] LABS: CREATININE 0.74 mg/dL (0.55-1.02)
== END | disposition home or self-care (01) ==
LOC: LAB 00:13
PROVIDERS: ATTEND Internal Medicine
DX: J40 Bronchitis, not specified as acute or chronic (principal); N28.89 Other specified disorders of kidney and ureter

== ENCOUNTER → 2020-07-22 | Outpatient (CLI) | payer OTHER, MEDICAID | END | disposition home or self-care (01) | LOC: CT 01:29 | PROVIDERS: ATTEND Internal Medicine | DX: J40 Bronchitis, not specified as acute or chronic (principal); N28.89 Other specified disorders of kidney and ureter ==

== ENCOUNTER → 2020-08-11 | Outpatient (CLI) | payer OTHER, MEDICAID ==
[2020-08-11 10:52] LABS: BUN 6 mg/dl (7-24); CREATININE 0.79 mg/dL (0.55-1.02)
== END | disposition home or self-care (01) ==
LOC: LAB 10:01
PROVIDERS: ATTEND Internal Medicine
DX: N28.9 Disorder of kidney and ureter, unspecified (principal)

== ENCOUNTER → 2020-08-12 | Outpatient (CLI) | payer OTHER, MEDICAID | END | disposition home or self-care (01) | LOC: LAB 00:13 → CT 11:00 | PROVIDERS: ATTEND Internal Medicine | DX: J43.9 Emphysema, unspecified (principal); J84.10 Pulmonary fibrosis, unspecified; N28.9 Disorder of kidney and ureter, unspecified; K44.9 Diaphragmatic hernia without obstruction or gangrene; K57.90 Diverticulosis of intestine, part unspecified, without perforation or abscess without bleeding; R93.2 Abnormal findings on diagnostic imaging of liver and biliary tract ==

== ENCOUNTER → 2020-11-22 | Outpatient (CLI) | payer OTHER, MEDICAID ==
[2020-11-22 09:42] LABS: BASO % 0.3 % (0.0-1.0); EOS # 0.2 10*3/uL (0.0-0.4); EOS % 3.6 % (1.0-4.0); HEMATOCRIT 27.6 % (37.0-47.0); MEAN CELL VOLUME 75.6 fl (81.0-99.0); MEAN CORPUSCULAR HGB 21.1 pg (27.0-31.0); MEAN CORPUSCULAR HGB CONC 27.9 g/dl (33.0-37.0); MEAN PLATELET VOLUME 9.1 fl (9.6-12.3); MONO # 1.1 10*3/uL (0.1-1.0); MONO % 18.8 % (3.0-9.0); NEUT # 3.5 10*3/uL (2.3-7.9); NEUT % 59.4 % (47.0-73.0); PLATELET COUNT AUTOMATED 121 10*3/uL (130-400); RED BLOOD COUNT 3.65 10*6/uL (4.10-5.10); WHITE BLOOD COUNT 5.8 10*3/uL (4.8-10.8)
[2020-11-22 10:13] LABS: ALBUMIN 2.8 gm/dl (3.1-4.5); ALKALINE PHOSPHATASE 116 U/L (45-117); BUN 6 mg/dl (7-24); CHLORIDE 100 mmol/L (98-107); CREATININE 0.74 mg/dL (0.55-1.02); SGOT/AST 14 IU/L (3-35); SODIUM 137 mmol/L (136-145); TOTAL PROTEIN 7.6 gm/dL (6.4-8.2)
[2020-11-22 10:20] LABS: SGPT/ALT 21 U/L (12-78)
== END | disposition home or self-care (01) ==
LOC: LAB 09:14
PROVIDERS: ATTEND Internal Medicine Hematology & Oncology
DX: C72.1 Malignant neoplasm of cauda equina (principal); C78.7 Secondary malignant neoplasm of liver and intrahepatic bile duct; C68.9 Malignant neoplasm of urinary organ, unspecified; C79.10 Secondary malignant neoplasm of unspecified urinary organs; C78.00 Secondary malignant neoplasm of unspecified lung; D50.9 Iron deficiency anemia, unspecified; E88.9 Metabolic disorder, unspecified; T82.868A Thrombosis due to vascular prosthetic devices, implants and grafts, initial encounter; Z99.81 Dependence on supplemental oxygen